=== PATIENT | female | born 1995 | race Caucasian/White ===

== ENCOUNTER 2018-11-16 09:21 | Emergency (ER) | payer BC ==
[~2018-11-16 09:21] MED LIST: Ketorolac Tromethamine 60 MG/2 ML VIAL ONE
== END 2018-11-16 09:48 | disposition home or self-care (01) ==
LOC: ERS 09:21
DX: S16.1XXA Strain of muscle, fascia and tendon at neck level, initial encounter (principal); S39.012A Strain of muscle, fascia and tendon of lower back, initial encounter; V29.9XXA Motorcycle rider (driver) (passenger) injured in unspecified traffic accident, initial encounter
CPT/HCPCS: 96372; J1885